=== PATIENT | female | born 1955 | race Caucasian/White ===

== ENCOUNTER 2017-02-03 14:57 | Emergency (ER) | payer OTHER ==
[~2017-02-03] VITALS: Ht 154.9 cm; Wt 69.2 kg
[2017-02-03 15:23] LABS: HEMATOCRIT 43.9 % (34.6-47.8); WHITE BLOOD COUNT 8.7 x10^3/uL (3.4-10)
[2017-02-03] MEDS ORDERED: ASPIRIN 81 MG TABLET CHEW PO ONE (15:30)
[2017-02-03 15:33] LABS: BLOOD UREA NITROGEN 14 mg/dL (7-18)
[2017-02-03 15:39] LABS: ASPARTATE AMINO TRANSFERASE 21 U/L (15-37)
[2017-02-03] MEDS ORDERED: ASPIRIN 81 MG TABLET CHEW ONE (15:39)
[2017-02-03 15:42] LABS: IS PT STATUS REG ER OR PRE ER? YES
[2017-02-03 16:40] VITALS: BP 120/67
== END 2017-02-03 16:45 | disposition home or self-care (01) ==
LOC: ED 16:39
DX: R07.89 Other chest pain (principal)
CPT/HCPCS: 36415; 71020; 80053; 83690; 84484; 85025; 93005; 99285

== ENCOUNTER 2017-08-16 11:36 | Inpatient (IN) | payer MEDICAID, OTHER ==
[~2017-08-16] VITALS: Ht 154.9 cm; Wt 63.5 kg
[2017-08-16] MEDS ORDERED: SODIUM CHLORIDE 0.9% 1,000 ML IV ONE ×2 (11:52→13:08)
[2017-08-16] MEDS ORDERED: SODIUM CHLORIDE FLUSH 10ML SYR IVF ONE (12:00)
[2017-08-16] MEDS ORDERED: SODIUM CHLORIDE 0.9% 1,000ML IVBOLUS ONE ×2 (12:00→12:30)
[2017-08-16] MEDS ORDERED: ACETAMINOPHEN 500 MG TABLET PO ONE (12:00)
[2017-08-16] MEDS ORDERED: ACETAMINOPHEN 500 MG TABLET ONE (12:12)
[2017-08-16] MEDS ORDERED: CEFTRIAXONE PMX 1GM/50ML 50 ML IVPB ONE (12:30)
[2017-08-16] MEDS ORDERED: AZITHROMYCIN 500 MG in SODIUM CHLORIDE 0.9% 250 ML IVPB ONE (12:30)
[2017-08-16 12:36] LABS: ALANINE AMINOTRANSFERASE 20 U/L (12-78); ALBUMIN 3.1 g/dL (3.4-5.0); ANION GAP 10 mmol/L (5-15); CALCIUM 8.3 mg/dL (8.5-10.1); CHLORIDE 100 mmol/L (98-107)
[2017-08-16 12:38] LABS: ALKALINE PHOSPHATASE 117 U/L (45-117); BILIRUBIN,TOTAL 1.4 mg/dL (0.2-1.0)
[2017-08-16 12:42] LABS: MEAN CORPUSCULAR HEMOGLOBIN 30.2 pg (27.0-34.8); MEAN CORPUSCULAR HGB CONC 33.6 g/dL (32.4-35.8); MEAN PLATELET VOLUME 10.2 fL (7.4-10.4); PLATELET COUNT 275 x10^3/uL (130-400); RED CELL DISTRIBUTION WIDTH 13.7 % (9.6-15.2)
[2017-08-16] MEDS ORDERED: CEFTRIAXONE PMX 1GM/50ML 50 ML ONE (12:46)
[2017-08-16 13:07] LABS: MD YES
[2017-08-16 13:10] LABS: BAND#(MANUAL) 1.32 x10^3/uL; BANDS%(MANUAL) 7 % (0-7); LYMPH#(MANUAL) 2.65 x10^3/uL (1-3.4); LYMPHS% (MANUAL) 14 % (22-44); MONOS#(MANUAL) 1.51 x10^3/uL (0.3-2.7); MONOS% (MANUAL) 8 % (2-9); SEG#(MANUAL) 13.42 x10^3/uL (1.8-6.8); SEGS% (MANUAL) 71 % (42-75)
[2017-08-16 13:11] LABS: <PLATELET ESTIMATE> ADEQUATE; <RBC MORPHOLOGY> NORMAL; LARGE PLATELETS 1+
[2017-08-16] MEDS ORDERED: SODIUM CHLORIDE FLUSH 10ML SYR IVF PRN (13:30)
[2017-08-16] MEDS ORDERED: ONDANSETRON ODT 4 MG PO PRN (14:30)
[2017-08-16] MEDS ORDERED: LABETALOL 5MG/ML, 20ML IVPush PRN (14:30)
[2017-08-16] MEDS ORDERED: ONDANSETRON 2MG/ML, 2ML IVPush PRN (14:30)
[2017-08-16 14:37] LABS: FREE T4 (FREE THYROXINE) 1.25 ng/dL (0.76-1.46)
[2017-08-16] MEDS ORDERED: ALBUTEROL SULFATE 2.5 MG/3 ML NPPB PRN (16:00)
[2017-08-16 16:23] VITALS: BP 108/67
[2017-08-16 16:29] LABS: D-DIMER 0.97 ug/mlFEU (0.00-0.52); INTERNATIONAL NORMALIZED RATIO 1.11 (0.93-1.1); PROTHROMBIN TIME 11.4 Seconds (9.6-11.5)
[2017-08-16] MEDS ORDERED: SODIUM PHOSPHATE 30 MMOL in SODIUM CHLORIDE 0.9% 500 ML IV ONE (17:00)
[2017-08-16] MEDS ORDERED: SODIUM PHOSPHATE 4 MEQ/ML IV SCH (17:00)
[2017-08-16] MEDS ORDERED: PHARMACOKINETIC MONITORING MC PRN (17:00)
[2017-08-16] MEDS ORDERED: VANCOMYCIN PER PHARMACY MC PRN (17:00)
[2017-08-16 17:19] LABS: TROPONIN I < 0.015 ng/mL (0.000-0.045)
[2017-08-16 17:46] VITALS: BP 109/70
[2017-08-16] MEDS: VANCOMYCIN 1,200 MG in SODIUM CHLORIDE 0.9% 250 ML IV SCH (17:55)
[2017-08-16 20:20] VITALS: BP 124/76
[2017-08-16] MEDS ORDERED: DOXYCYCLINE 100MG TABLET PO SCH (21:00)
[2017-08-16] MEDS: ENOXAPARIN 40 MG/0.4 ML SQ SCH ×2 (21:00→21:22)
[2017-08-16] MEDS: PIPERACILLIN/TAZO/PMX 3.375GM 50 ML IV SCH (21:22)
[2017-08-16 21:40] LABS: MICROSCOPIC INDICATED
[2017-08-16 21:41] LABS: CULTURE INDICATED? NO
[2017-08-16] MEDS ORDERED: KETOROLAC 30 MG/1 ML IM PRN (22:30)
[2017-08-16] MEDS ORDERED: KETOROLAC 30 MG/1 ML ONE (23:03)
[2017-08-16] MEDS: KETOROLAC 30 MG/1 ML IV PRN (23:14)
[2017-08-16 23:43] LABS: TROPONIN I < 0.015 ng/mL (0.000-0.045)
[2017-08-17 00:35] VITALS: BP 116/66
[2017-08-17] MEDS: PIPERACILLIN/TAZO/PMX 3.375GM 50 ML IV SCH ×4 (03:04→20:43)
[2017-08-17] MEDS ORDERED: KETOROLAC 30 MG/1 ML IV PRN (04:30)
[2017-08-17 06:07] LABS: ALBUMIN 2.2 g/dL (3.4-5.0); ANION GAP 8 mmol/L (5-15); CALCIUM 7.3 mg/dL (8.5-10.1); CHLORIDE 112 mmol/L (98-107)
[2017-08-17 06:11] LABS: ALANINE AMINOTRANSFERASE 17 U/L (12-78); ALKALINE PHOSPHATASE 92 U/L (45-117); BILIRUBIN,TOTAL 0.5 mg/dL (0.2-1.0)
[2017-08-17 06:14] LABS: BASOPHILS # (AUTO) 0.08 x10^3/uL (0-0.1); BASOPHILS % (AUTO) 1 % (0-1); EOSINOPHILS # (AUTO) 0.02 x10^3/uL (0-0.4); EOSINOPHILS % (AUTO) 0 % (1-7); LYMPHOCYTES % (AUTO) 20 % (22-44); MD NO; MEAN CORPUSCULAR HEMOGLOBIN 30.1 pg (27.0-34.8); MEAN CORPUSCULAR HGB CONC 33.1 g/dL (32.4-35.8); MEAN CORPUSCULAR VOLUME 91.1 fL (80-100); MEAN PLATELET VOLUME 9.7 fL (7.4-10.4); MONOCYTES # (AUTO) 1.11 x10^3/uL (0.2-0.8); MONOCYTES % (AUTO) 8 % (2-9); NEUTROPHILS # (AUTO) 9.82 x10^3/uL (1.8-6.8); NEUTROPHILS % (AUTO) 71 % (42-75); PLATELET COUNT 217 x10^3/uL (130-400); RED BLOOD COUNT 3.98 x10^6/uL (3.82-5.3); RED CELL DISTRIBUTION WIDTH 13.5 % (9.6-15.2)
[2017-08-17 06:19] LABS: TROPONIN I < 0.015 ng/mL (0.000-0.045)
[2017-08-17 07:43] VITALS: BP 103/67
[2017-08-17] MEDS ORDERED: prednisOLONE 15 MG/5 ML ORAL SOLN PO SCH (08:00)
[2017-08-17] MEDS ORDERED: REGADENOSON 0.4 MG/5 ML SYRINGE ONE (09:23)
[2017-08-17 10:10] LABS: RAPID INFLUENZA A Negative (Negative); RAPID INFLUENZA B Negative (Negative)
[2017-08-17] MEDS ORDERED: POTASSIUM CHLORIDE 20 MEQ TAB.ER.PRT PO ONE (11:30)
[2017-08-17] MEDS ORDERED: CEFTRIAXONE PMX 1GM/50ML 50 ML IV SCH (12:00)
[2017-08-17] MEDS: KETOROLAC 30 MG/1 ML IV PRN (12:54)
[2017-08-17 13:23] VITALS: BP 131/77
[2017-08-17] MEDS: VANCOMYCIN 1,200 MG in SODIUM CHLORIDE 0.9% 250 ML IV SCH (17:40)
[2017-08-17 19:38] VITALS: BP 123/69
[2017-08-17] MEDS: ENOXAPARIN 40 MG/0.4 ML SQ SCH (20:43)
[2017-08-18 00:21] VITALS: BP 146/75
[2017-08-18] MEDS: PIPERACILLIN/TAZO/PMX 3.375GM 50 ML IV SCH (03:08)
[2017-08-18 05:31] LABS: BASOPHILS # (AUTO) 0.15 x10^3/uL (0-0.1); BASOPHILS % (AUTO) 1 % (0-1); EOSINOPHILS # (AUTO) 0.01 x10^3/uL (0-0.4); EOSINOPHILS % (AUTO) 0 % (1-7); LYMPHOCYTES # (AUTO) 2.09 x10^3/uL (1-3.4); LYMPHOCYTES % (AUTO) 15 % (22-44); MD NO; MEAN CORPUSCULAR HGB CONC 33.4 g/dL (32.4-35.8); MEAN CORPUSCULAR VOLUME 89.9 fL (80-100); MEAN PLATELET VOLUME 9.7 fL (7.4-10.4); MONOCYTES # (AUTO) 0.87 x10^3/uL (0.2-0.8); MONOCYTES % (AUTO) 6 % (2-9); NEUTROPHILS # (AUTO) 11.22 x10^3/uL (1.8-6.8); NEUTROPHILS % (AUTO) 78 % (42-75); PLATELET COUNT 264 x10^3/uL (130-400); RED BLOOD COUNT 4.09 x10^6/uL (3.82-5.3); RED CELL DISTRIBUTION WIDTH 13.7 % (9.6-15.2)
[2017-08-18 05:40] LABS: ALBUMIN 2.5 g/dL (3.4-5.0); ANION GAP 7 mmol/L (5-15); CALCIUM 8.3 mg/dL (8.5-10.1); CHLORIDE 114 mmol/L (98-107); CREATININE 0.82 mg/dL (0.55-1.02)
[2017-08-18] MEDS: KETOROLAC 30 MG/1 ML IV PRN ×2 (06:45→20:41)
[2017-08-18 06:56] VITALS: BP 120/75
[2017-08-18] MEDS: DOXYCYCLINE 100MG TABLET PO SCH ×2 (09:01→20:32)
[2017-08-18] MEDS: CEFTRIAXONE PMX 1GM/50ML 50 ML IV SCH (09:01)
[2017-08-18] MEDS ORDERED: SODIUM PHOSPHATE 4 MEQ/ML IV SCH (12:00)
[2017-08-18] MEDS ORDERED: SODIUM PHOSPHATE 40 MEQ in SODIUM CHLORIDE 0.9% 500 ML IV ONE (12:00)
[2017-08-18 14:41] VITALS: BP 126/70
[2017-08-18 20:03] VITALS: BP 134/81
[2017-08-18] MEDS: ENOXAPARIN 40 MG/0.4 ML SQ SCH (20:32)
[2017-08-19 00:09] VITALS: BP 124/74
[2017-08-19] MEDS: KETOROLAC 30 MG/1 ML IV PRN (04:11)
[2017-08-19 07:36] LABS: ANION GAP 5 mmol/L (5-15); CALCIUM 7.9 mg/dL (8.5-10.1); CHLORIDE 116 mmol/L (98-107); CREATININE 0.86 mg/dL (0.55-1.02)
[2017-08-19 07:37] LABS: ALANINE AMINOTRANSFERASE 21 U/L (12-78); ALBUMIN 2.3 g/dL (3.4-5.0)
[2017-08-19 07:38] LABS: BASOPHILS # (AUTO) 0.24 x10^3/uL (0-0.1); BASOPHILS % (AUTO) 2 % (0-1); EOSINOPHILS # (AUTO) 0.06 x10^3/uL (0-0.4); EOSINOPHILS % (AUTO) 1 % (1-7); LYMPHOCYTES # (AUTO) 3.27 x10^3/uL (1-3.4); LYMPHOCYTES % (AUTO) 30 % (22-44); MD NO; MEAN CORPUSCULAR HEMOGLOBIN 29.8 pg (27.0-34.8); MEAN CORPUSCULAR HGB CONC 33.3 g/dL (32.4-35.8); MEAN CORPUSCULAR VOLUME 89.5 fL (80-100); MEAN PLATELET VOLUME 9.5 fL (7.4-10.4); MONOCYTES # (AUTO) 0.82 x10^3/uL (0.2-0.8); MONOCYTES % (AUTO) 8 % (2-9); NEUTROPHILS # (AUTO) 6.39 x10^3/uL (1.8-6.8); NEUTROPHILS % (AUTO) 59 % (42-75); PLATELET COUNT 237 x10^3/uL (130-400); RED BLOOD COUNT 3.84 x10^6/uL (3.82-5.3)
[2017-08-19 07:39] LABS: ALKALINE PHOSPHATASE 94 U/L (45-117); BILIRUBIN,TOTAL 0.2 mg/dL (0.2-1.0); TOTAL PROTEIN 6.1 g/dL (6.4-8.2)
[2017-08-19 07:48] LABS: HEMOGRAM NOTE RECHECKED
[2017-08-19 08:03] VITALS: BP 133/78
[2017-08-19] MEDS: DOXYCYCLINE 100MG TABLET PO SCH ×2 (09:15→20:49)
[2017-08-19] MEDS: CEFTRIAXONE PMX 1GM/50ML 50 ML IV SCH (09:16)
[2017-08-19] MEDS: ACETAMINOPHEN 325 MG TABLET PO PRN ×2 (09:42→20:55)
[2017-08-19 14:36] VITALS: BP 145/81
[2017-08-19 20:42] VITALS: BP 133/81
[2017-08-19] MEDS: ENOXAPARIN 40 MG/0.4 ML SQ SCH (20:49)
[2017-08-20 00:55] VITALS: BP 123/67
[2017-08-20 05:44] LABS: BASOPHILS # (AUTO) 0.11 x10^3/uL (0-0.1); BASOPHILS % (AUTO) 1 % (0-1); EOSINOPHILS # (AUTO) 0.09 x10^3/uL (0-0.4); EOSINOPHILS % (AUTO) 1 % (1-7); LYMPHOCYTES % (AUTO) 34 % (22-44); MD NO; MEAN CORPUSCULAR HEMOGLOBIN 30.2 pg (27.0-34.8); MEAN CORPUSCULAR HGB CONC 33.5 g/dL (32.4-35.8); MEAN CORPUSCULAR VOLUME 90.1 fL (80-100); MEAN PLATELET VOLUME 9.7 fL (7.4-10.4); MONOCYTES # (AUTO) 0.73 x10^3/uL (0.2-0.8); MONOCYTES % (AUTO) 8 % (2-9); NEUTROPHILS # (AUTO) 5.46 x10^3/uL (1.8-6.8); NEUTROPHILS % (AUTO) 56 % (42-75); PLATELET COUNT 241 x10^3/uL (130-400); RED BLOOD COUNT 4.03 x10^6/uL (3.82-5.3); RED CELL DISTRIBUTION WIDTH 13.6 % (9.6-15.2)
[2017-08-20 05:50] LABS: ALBUMIN 2.3 g/dL (3.4-5.0)
[2017-08-20 05:56] LABS: ANION GAP 7 mmol/L (5-15); CALCIUM 7.9 mg/dL (8.5-10.1); CHLORIDE 111 mmol/L (98-107); CREATININE 0.87 mg/dL (0.55-1.02)
[2017-08-20 08:24] VITALS: BP 120/72
[2017-08-20] MEDS: DOXYCYCLINE 100MG TABLET PO SCH (08:30)
[2017-08-20] MEDS: CEFTRIAXONE PMX 1GM/50ML 50 ML IV SCH (08:31)
[2017-08-20 13:26] VITALS: BP 128/71
[2017-08-20] MEDS ORDERED: DOXY100T PO (15:31)
[2017-08-20] MEDS ORDERED: GUAI-110 PO (15:31)
[2017-08-20] MEDS ORDERED: CEFD300C37 PO (15:31)
[2017-08-20] MEDS ORDERED: GUAI-103 PO (15:32)
[2017-08-20] MEDS ORDERED: TIOT18CA INH (15:34)
[2017-08-20] MEDS ORDERED: BUDE10.22 INH (15:34)
[2017-08-20] MEDS ORDERED: ALBU8.5H8 INH (15:34)
[2017-08-20] MEDS: ACETAMINOPHEN 325 MG TABLET PO PRN (15:58)
== END 2017-08-20 17:11 | disposition home or self-care (01) | DRG 871 ==
LOC: ED 12:25 → EDIP 13:08 → 3NE 14:14 → 4EST 17:40
PROVIDERS: ADMIT Hospitalist; ATTEND Hospitalist
DX: A41.9 Sepsis, unspecified organism (principal); E43 Unspecified severe protein-calorie malnutrition; J15.9 Unspecified bacterial pneumonia; E87.1 Hypo-osmolality and hyponatremia; E83.39 Other disorders of phosphorus metabolism; R17 Unspecified jaundice; E86.0 Dehydration; E87.6 Hypokalemia; Z91.041 Radiographic dye allergy status; Z68.26 Body mass index [BMI] 26.0-26.9, adult
CPT/HCPCS: 36415; 71045; 78452; 78598; 80048; 80053; 81001; 82040; 83605; 83735; 84100; 84145; 84439; 84484; 85025; 85379; 85610; 87040; 87070; 87205; 87400; 93005; 93017; 93306; 96365; J0456; J0696; J1650; J1885; J2543; J2785; J3370; A9502; A9540; A9558; C9898; J7030; J7040; J7050; J7510

== ENCOUNTER 2019-05-26 14:36 | Emergency (ER) | payer SELFPAY ==
[~2019-05-26] VITALS: Ht 154.9 cm; Wt 63.0 kg
[~2019-05-26 14:36] MED LIST: ALBU8.5H8 INH; BUDE10.22 INH; CEFD300C37 PO; DOXY100T PO; GUAI-103 PO; GUAI-110 PO; TIOT18CA INH
[2019-05-26 14:56] VITALS: BP 99/63
--- NOTE | 2019-05-26 15:19 | NUR ---
PT HERE WITH C/O SORE THROAT, COUGH, AND BILATERAL EAR PAIN X 3 DAYS.
[2019-05-26] MEDS ORDERED: DEXAMETHASONE 4 MG TABLET PO STA (15:51)
[2019-05-26] MEDS ORDERED: DEXAMETHASONE 4 MG TABLET ONE (15:58)
[2019-05-26] MEDS ORDERED: IBUPROFEN 200 MG TABLET ONE (15:58)
[2019-05-26] MEDS ORDERED: IBUPROFEN 200 MG TABLET PO ONE (16:00)
--- NOTE | 2019-05-26 16:50 | NUR ---
Patient/Caregiver given discharge instructions and they have confirmed that they understand the instructions. Patient ambulatory with steady gait.
== END 2019-05-26 17:05 | disposition home or self-care (01) ==
LOC: ED 15:31
DX: J20.8 Acute bronchitis due to other specified organisms (principal); J00 Acute nasopharyngitis [common cold]; B97.89 Other viral agents as the cause of diseases classified elsewhere
CPT/HCPCS: 71046; 99283

== ENCOUNTER 2019-12-24 17:03 | Emergency (ER) | payer SELFPAY ==
[~2019-12-24] VITALS: Ht 154.9 cm; Wt 69.8 kg
[2019-12-24 17:06] VITALS: BP 122/69
--- NOTE | 2019-12-24 18:19 | NUR ---
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 PT AMBULATORY WITH STEADY GAIT. JOSELO
== END 2019-12-24 19:07 | disposition home or self-care (01) ==
LOC: ED 18:45
DX: R07.89 Other chest pain (principal); N64.4 Mastodynia; L30.9 Dermatitis, unspecified; Z87.891 Personal history of nicotine dependence
CPT/HCPCS: 99282

== ENCOUNTER 2020-05-17 16:14 | Emergency (ER) | payer MEDICARE ==
[~2020-05-17] VITALS: Ht 154.9 cm; Wt 70.5 kg
--- NOTE | 2020-05-17 16:16 | NUR ---
CALLED FOR PT. PT NOT IN LOBBY
--- NOTE | 2020-05-17 16:35 | NUR ---
LEFT LUNG PAIN AND DIZZINESS FOR 5 DAYS
[2020-05-17] MEDS ORDERED: SODIUM CHLORIDE FLUSH 10ML SYR IVF ONE (17:30)
[2020-05-17] MEDS ORDERED: SODIUM CHLORIDE 0.9% 1,000ML IVBOLUS ONE (17:30)
[2020-05-17 17:58] LABS: BASOPHILS % (AUTO) 1 % (0-1); EOSINOPHILS % (AUTO) 2 % (1-7); LYMPHOCYTES % (AUTO) 43 % (22-44); MEAN CORPUSCULAR HEMOGLOBIN 31.1 pg (27.0-34.8); MEAN CORPUSCULAR HGB CONC 33.8 g/dL (32.4-35.8); MEAN PLATELET VOLUME 11.2 fL (7.4-10.4); MONOCYTES % (AUTO) 6 % (2-9); NEUTROPHILS % (AUTO) 48 % (42-75); PLATELET COUNT 155 x10^3/uL (130-400); RED BLOOD COUNT 5.24 x10^6/uL (3.82-5.3); RED CELL DISTRIBUTION WIDTH 14.3 % (9.6-15.2)
[2020-05-17 18:01] LABS: ALANINE AMINOTRANSFERASE 35 U/L (12-78); ALBUMIN 3.7 g/dL (3.4-5.0); CALCIUM 8.9 mg/dL (8.5-10.1); CREATININE 0.85 mg/dL (0.55-1.02)
--- NOTE | 2020-05-17 18:01 | NUR ---
helped patient to phone to call her daughter.
[2020-05-17 18:05] LABS: ALKALINE PHOSPHATASE 137 U/L (45-117); BILIRUBIN,TOTAL 0.3 mg/dL (0.2-1.0); TOTAL PROTEIN 7.7 g/dL (6.4-8.2); TROPONIN I < 0.015 ng/mL (0.000-0.045)
[2020-05-17 18:06] LABS: MICROSCOPIC AUTO
[2020-05-17 18:09] LABS: ANION GAP 8 mmol/L (5-15); CHLORIDE 110 mmol/L (98-107); MD NO
[2020-05-17 18:27] VITALS: BP 112/67
--- NOTE | 2020-05-17 18:50 | NUR ---
LATE ENTRY D/T PT CARE: AMOL REPORT FROM DARBY CASTELLON. PT CARE TRANSFERRED AT THIS TIME. PT NAD, RESTING ON GURNEY, ALL QUESTIONS ANSWERED APPROPRIATELY, DENIES ADDITIONAL NEEDS AT THIS TIME. SHAHRZAD.
[2020-05-17] MEDS ORDERED: ASPIRIN 81 MG TABLET CHEW PO ONE (19:00)
--- NOTE | 2020-05-17 19:43 | NUR ---
Patient given discharge instructions and they have confirmed that they understand the instructions. Patient ambulatory with steady gait. NAD, STATES DAUGHTER WILL BE PICKING HER UP. ALL QUESTIONS ANSWERED APPROPRIATELY. DENIES ADDITIONAL NEEDS AT THIS TIME. NO PERSONAL BELONGINGS LEFT IN ROOM AFTER DC.
== END 2020-05-17 19:46 | disposition home or self-care (01) ==
LOC: ED 19:44
DX: R42 Dizziness and giddiness (principal); R07.89 Other chest pain; R94.31 Abnormal electrocardiogram [ECG] [EKG]; G89.29 Other chronic pain
CPT/HCPCS: 36415; 74022; 80053; 81001; 83605; 83690; 84484; 85025; 87040; 87086; 93005; 99285

== ENCOUNTER 2020-07-09 15:19 | Emergency (ER) | payer MEDICARE ==
[~2020-07-09] VITALS: Ht 154.9 cm; Wt 71.3 kg
--- NOTE | 2020-07-09 15:45 | NUR ---
About 2 months ago, PCP recommended follow up with neurology ([facility]) and pt states "I got 2 tests in 2 different machines, and one was with the dye. Then the doctor called me and said they ran all the wrong tests and I didn't want to go back, but everything's getting worse." Pt c/o right eye heaviness and mild bluriness; dark skin under her eyes; losing some of her words; [place]; fatigue; dizziness. Pt in bed, able to change out of day clothes into gown unassisted. Call light in reach, bed rails up x2, all needs met at this time.
--- NOTE | 2020-07-09 15:57 | NUR ---
Right eye twitch noted.
[2020-07-09 16:27] VITALS: BP 121/64
--- NOTE | 2020-07-09 17:39 | NUR ---
Pt to imaging in wheelchair.
[2020-07-09 17:41] LABS: BASOPHILS % (AUTO) 1 % (0-1); EOSINOPHILS % (AUTO) 2 % (1-7); LYMPHOCYTES % (AUTO) 35 % (22-44); MEAN CORPUSCULAR HEMOGLOBIN 31.2 pg (27.0-34.8); MEAN CORPUSCULAR HGB CONC 34.1 g/dL (32.4-35.8); MEAN PLATELET VOLUME 10.2 fL (7.4-10.4); MONOCYTES % (AUTO) 7 % (2-9); NEUTROPHILS % (AUTO) 55 % (42-75); PLATELET COUNT 161 x10^3/uL (130-400); RED BLOOD COUNT 4.82 x10^6/uL (3.82-5.3)
[2020-07-09 17:42] LABS: MD NO
--- NOTE | 2020-07-09 17:48 | NUR ---
Pt talking on phone with family.
[2020-07-09 17:53] LABS: ALANINE AMINOTRANSFERASE 33 U/L (12-78); ALBUMIN 3.3 g/dL (3.4-5.0); ANION GAP 3 mmol/L (5-15); CALCIUM 8.6 mg/dL (8.5-10.1); CHLORIDE 109 mmol/L (98-107); CREATININE 0.72 mg/dL (0.55-1.02)
[2020-07-09 17:57] LABS: ALKALINE PHOSPHATASE 127 U/L (45-117); BILIRUBIN,TOTAL 0.2 mg/dL (0.2-1.0); TOTAL PROTEIN 7.2 g/dL (6.4-8.2); TROPONIN I < 0.015 ng/mL (0.000-0.045)
--- NOTE | 2020-07-09 19:04 | NUR ---
Pt asking to leave, pt educated about urine results, pt states she'll follow up and will call back. Pt given d/c instructions. Pt states "well am I going to get a med for my sciatic nerve?" Pt then states "well the doctor told me no, so where's d/c?"
--- NOTE | 2020-07-09 19:07 | NUR ---
Report received from RAVINDER Barajas. Patient tbdc.
[2020-07-09 19:15] LABS: MICROSCOPIC INDICATED
== END 2020-07-09 19:10 | disposition home or self-care (01) ==
LOC: ED 19:04
DX: R51.9 Headache, unspecified (principal); G89.29 Other chronic pain; R35.0 Frequency of micturition; M25.511 Pain in right shoulder; R07.9 Chest pain, unspecified; R94.31 Abnormal electrocardiogram [ECG] [EKG]; F17.210 Nicotine dependence, cigarettes, uncomplicated; Z88.5 Allergy status to narcotic agent; Z88.1 Allergy status to other antibiotic agents; Z88.6 Allergy status to analgesic agent
CPT/HCPCS: 36415; 70450; 71045; 80053; 81001; 84484; 85025; 93005; 99285

== ENCOUNTER 2020-12-02 14:24 | Emergency (ER) | payer MEDICARE ==
[~2020-12-02] VITALS: Ht 154.9 cm; Wt 69.2 kg
[2020-12-02 14:58] VITALS: BP 122/67
[2020-12-02] MEDS ORDERED: LIDOCAINE-MPF 1%, 5ML INFIL ONE (15:30)
--- NOTE | 2020-12-02 16:57 | NUR ---
cut off saw tender metal note: Pt to room from lobby.
--- NOTE | 2020-12-02 17:10 | NUR ---
First contact with patient: patient presents to ER c/o lesion in the left side groin area. She states it was bigger and it drained some fluid; now it is smaller but is still painful. Lesion approx 2-3 cm round. Patient is slightly anxious about the situation.
[2020-12-02] MEDS ORDERED: LIDOCAINE-MPF 1%, 5ML ONE (17:21)
[2020-12-02] MEDS ORDERED: KETOROLAC 30 MG/1 ML ONE (17:58)
[2020-12-02] MEDS ORDERED: METHOCARBAMOL 750 MG TABLET ONE (17:58)
[2020-12-02] MEDS ORDERED: METHOCARBAMOL 750 MG TABLET PO ONE (18:00)
[2020-12-02] MEDS ORDERED: KETOROLAC 30 MG/1 ML IM ONE (18:00)
--- NOTE | 2020-12-02 18:35 | NUR ---
Patient only took aprox 375mg of the Robaxin. Admin Toradol per jul.
== END 2020-12-02 18:44 | disposition home or self-care (01) ==
LOC: ED 18:35
DX: S39.012A Strain of muscle, fascia and tendon of lower back, initial encounter (principal); L02.214 Cutaneous abscess of groin; F17.200 Nicotine dependence, unspecified, uncomplicated; X58.XXXA Exposure to other specified factors, initial encounter; Y93.89 Activity, other specified; Y92.89 Other specified places as the place of occurrence of the external cause; Y99.8 Other external cause status
CPT/HCPCS: 56405; 72110; 96372; 99284; J1885